=== PATIENT | female | born 1950 | race Caucasian/White ===

== ENCOUNTER 2016-04-13 10:14 | Inpatient (IN) | payer SELFPAY ==
[~2016-04-13] VITALS: Ht 167.6 cm; Wt 58.8 kg
[2016-04-13] MEDS ORDERED: OPTIRAY 350 100 ML VIAL HMH IV ONE (10:15)
[2016-04-13] MEDS ORDERED: SODIUM CHLORIDE 0.9% 0 ML ONE (11:12)
[2016-04-13] MEDS ORDERED: Ibuprofen 600 MG TAB ONE (13:58)
[2016-04-13] MEDS ORDERED: DILAUDID 1 MG/ML AMP ONE (14:56)
[2016-04-13] MEDS ORDERED: ONDANSETRON 4 MG VIAL ONE (14:56)
[2016-04-13] MEDS ORDERED: CEFTRIAXONE 1 GM VIAL ONE (15:32)
[2016-04-13] MEDS ORDERED: SODIUM CHLORIDE 0.9% 100 ML IV ONE (15:32)
[2016-04-13] MEDS ORDERED: SODIUM CHLORIDE 0.9% 250 ML IV ONE (15:57)
[2016-04-13] MEDS ORDERED: AZITHROMYCIN 500 MG VIAL IV ONE (15:57)
[2016-04-13] MEDS ORDERED: SODIUM CHLORIDE 0.9% 1,000 ML ONE ×2 (15:57→16:21)
[2016-04-13] MEDS ORDERED: ALU/MAG/SIM 30 ML UDC PO PRN (16:30)
[2016-04-13] MEDS ORDERED: MORPHINE 4 MG/ML SYR IV PRN (16:30)
[2016-04-13] MEDS ORDERED: ACETAMINOPHEN 325 MG TAB PO PRN (16:30)
[2016-04-13] MEDS ORDERED: MORPHINE 2 MG/ML SYR IV PRN (16:30)
[2016-04-13] MEDS ORDERED: BISACODYL 10 MG SUPP RECTAL PRN (16:30)
[2016-04-13] MEDS ORDERED: GUAIFEN/DM 10 ML UDC PO PRN (16:30)
[2016-04-13] MEDS ORDERED: ONDANSETRON 4 MG VIAL IV PRN (16:30)
[2016-04-13] MEDS ORDERED: SALINE FLUSH 10 ML FLUSH PRN (16:30)
[2016-04-13] MEDS ORDERED: MAG HYDROX 30 ML UDC PO PRN (16:30)
[2016-04-13] MEDS ORDERED: BISACODYL EC 5 MG TAB PO PRN (16:30)
[2016-04-13] MEDS ORDERED: Ibuprofen 600 MG TAB PO PRN (16:40)
[2016-04-13 18:23] VITALS: BP_SYST 124; BP_SYST 125; RESP 16; TEMP 99.2
[2016-04-13 18:24] VITALS: Ht 167.6 cm; Wt 58.8 kg
[2016-04-13] MEDS: NEB-XOPENEX 1.25 MG/3 ML INH SCH ×2 (18:30→23:33)
[2016-04-13] MEDS: SODIUM CHLORIDE 0.9% 1,000 ML IV SCH (18:52)
[2016-04-13] MEDS: ALPRAZOLAM 0.25 MG TAB PO PRN (18:55)
[2016-04-13 19:44] VITALS: BP_SYST 123; RESP 20; TEMP 99.1
[2016-04-13] MEDS: SALINE FLUSH 10 ML FLUSH SCH (19:53)
[2016-04-13] MEDS ORDERED: PROMETHAZINE 25 MG SUPP RECTAL PRN (20:10)
[2016-04-13] MEDS ORDERED: CYCLOBENZAPRINE 5 MG TAB PO PRN (20:10)
[2016-04-13] MEDS: FAMOTIDINE 20 MG TAB PO SCH (20:13)
[2016-04-13] MEDS: Ibuprofen 600 MG TAB PO SCH (20:14)
[2016-04-13] MEDS ORDERED: ZOLPIDEM 5 MG TAB PO ONE (22:30)
[2016-04-13] MEDS ORDERED: ZOLPIDEM 5 MG TAB ONE (22:36)
[2016-04-13 23:11] VITALS: BP_SYST 120; RESP 18; TEMP 98.7
[2016-04-13 23:37] VITALS: RESP 16
[2016-04-14] MEDS: Ibuprofen 600 MG TAB PO SCH ×4 (02:00→20:19)
[2016-04-14] MEDS: SODIUM CHLORIDE 0.9% 1,000 ML IV SCH ×2 (03:49→23:32)
[2016-04-14 03:58] VITALS: BP_SYST 135; RESP 16; TEMP 99.1
[2016-04-14] MEDS: ALPRAZOLAM 0.25 MG TAB PO PRN (04:51)
[2016-04-14] MEDS ORDERED: MISSING DOSE XX ONE (04:55)
[2016-04-14] MEDS: SODIUM CHLORIDE 0.9% FLUSH BAG 500 ML IV SCH ×2 (06:00)
[2016-04-14] MEDS: NEB-XOPENEX 1.25 MG/3 ML INH SCH ×3 (06:23→19:24)
[2016-04-14 07:12] VITALS: BP_SYST 128; RESP 18; TEMP 97.4
[2016-04-14] MEDS: CEFTRIAXONE 1 GM in SODIUM CHLORIDE 0.9% 50 ML IV SCH (08:23)
[2016-04-14] MEDS: AZITHROMYCIN 500 MG in SODIUM CHLORIDE 0.9% 250 ML IV SCH (09:24)
[2016-04-14] MEDS: SALINE FLUSH 10 ML FLUSH SCH ×2 (09:40→20:18)
[2016-04-14] MEDS: KCL CR 20 MEQ TAB PO SCH ×2 (09:44→20:18)
[2016-04-14] MEDS: GUAIFENESIN ER 600 MG TABCR PO SCH ×2 (09:44→20:18)
[2016-04-14] MEDS: MULTIVITS/MINERALS (THERAGRAN M) TAB PO SCH (09:44)
[2016-04-14] MEDS: FAMOTIDINE 20 MG TAB PO SCH ×2 (09:44→20:19)
[2016-04-14] MEDS: ENOXAPARIN 40 MG/0.4 ML SYR SUBQ SCH (09:45)
[2016-04-14 10:51] VITALS: BP_SYST 120; RESP 16; TEMP 97.6
[2016-04-14 14:58] VITALS: BP_SYST 136; RESP 16; TEMP 97.9
[2016-04-14] MEDS: ACETAMINOPHEN 500 MG TAB PO PRN (18:07)
[2016-04-14 20:05] VITALS: BP_SYST 138; RESP 16; TEMP 98.9
[2016-04-14] MEDS ORDERED: ZOLPIDEM 5 MG TAB PO PRN (22:55)
[2016-04-14 23:12] VITALS: BP_SYST 148; RESP 16; TEMP 98
[2016-04-15] MEDS: NEB-XOPENEX 1.25 MG/3 ML INH SCH ×5 (00:15→23:32)
[2016-04-15] MEDS: Ibuprofen 600 MG TAB PO SCH ×4 (02:00→20:40)
[2016-04-15 04:07] VITALS: BP_SYST 149; RESP 18; TEMP 98.4
[2016-04-15] MEDS: SODIUM CHLORIDE 0.9% FLUSH BAG 500 ML IV SCH ×2 (05:09→05:10)
[2016-04-15] MEDS: SODIUM CHLORIDE 0.9% 1,000 ML IV SCH (05:42)
[2016-04-15] MEDS: ACETAMINOPHEN 500 MG TAB PO PRN (07:23)
[2016-04-15 07:49] VITALS: BP_SYST 163; TEMP 97.6
[2016-04-15] MEDS: FAMOTIDINE 20 MG TAB PO SCH ×2 (10:10→20:39)
[2016-04-15] MEDS: SALINE FLUSH 10 ML FLUSH SCH ×2 (10:10→20:39)
[2016-04-15] MEDS: METOPROLOL XL 25 MG TAB PO SCH ×2 (10:10→20:39)
[2016-04-15] MEDS: GUAIFENESIN ER 600 MG TABCR PO SCH ×2 (10:10→20:39)
[2016-04-15] MEDS: KCL CR 20 MEQ TAB PO SCH ×2 (10:10→20:39)
[2016-04-15] MEDS: MULTIVITS/MINERALS (THERAGRAN M) TAB PO SCH (10:11)
[2016-04-15] MEDS: CEFTRIAXONE 1 GM in SODIUM CHLORIDE 0.9% 50 ML IV SCH (10:11)
[2016-04-15] MEDS: ENOXAPARIN 40 MG/0.4 ML SYR SUBQ SCH (10:12)
[2016-04-15] MEDS ORDERED: MISSING DOSE XX ONE (10:40)
[2016-04-15] MEDS: AZITHROMYCIN 500 MG in SODIUM CHLORIDE 0.9% 250 ML IV SCH (11:02)
[2016-04-15 11:51] VITALS: BP_SYST 124; RESP 18; TEMP 98.5
[2016-04-15 15:13] VITALS: BP_SYST 136; RESP 16; TEMP 98.5
[2016-04-15 20:00] VITALS: BP_SYST 147; RESP 16; TEMP 98.4
[2016-04-15] MEDS: SPIRONOLACTONE 25 MG TAB PO SCH (20:39)
[2016-04-15 23:00] VITALS: BP_SYST 151; RESP 18; TEMP 97.7
[2016-04-16] MEDS: ACETAMINOPHEN 500 MG TAB PO PRN (00:36)
[2016-04-16] MEDS: Ibuprofen 600 MG TAB PO SCH ×2 (02:00→08:52)
[2016-04-16 04:00] VITALS: BP_SYST 151; RESP 20; TEMP 98.2
[2016-04-16] MEDS: SODIUM CHLORIDE 0.9% FLUSH BAG 500 ML IV SCH ×2 (06:00→06:40)
[2016-04-16] MEDS: NEB-XOPENEX 1.25 MG/3 ML INH SCH ×2 (07:46→12:04)
[2016-04-16 07:58] VITALS: BP_SYST 157; RESP 18; TEMP 98.6
[2016-04-16] MEDS: SALINE FLUSH 10 ML FLUSH SCH (08:49)
[2016-04-16] MEDS: FAMOTIDINE 20 MG TAB PO SCH (08:50)
[2016-04-16] MEDS: MULTIVITS/MINERALS (THERAGRAN M) TAB PO SCH (08:50)
[2016-04-16] MEDS: KCL CR 20 MEQ TAB PO SCH (08:50)
[2016-04-16] MEDS: GUAIFENESIN ER 600 MG TABCR PO SCH (08:50)
[2016-04-16] MEDS: METOPROLOL XL 25 MG TAB PO SCH (08:50)
[2016-04-16] MEDS: SPIRONOLACTONE 25 MG TAB PO SCH (08:50)
[2016-04-16] MEDS: ENOXAPARIN 40 MG/0.4 ML SYR SUBQ SCH (08:51)
[2016-04-16] MEDS: CEFTRIAXONE 1 GM in SODIUM CHLORIDE 0.9% 50 ML IV SCH (08:52)
[2016-04-16] MEDS ORDERED: MISSING DOSE XX ONE (10:15)
[2016-04-16 11:35] VITALS: BP_SYST 149; RESP 18; TEMP 98
[2016-04-16] MEDS: AZITHROMYCIN 500 MG in SODIUM CHLORIDE 0.9% 250 ML IV SCH (11:36)
[2016-04-16 11:57] VITALS: BP_SYST 149; RESP 18; TEMP 98
== END 2016-04-16 13:43 | disposition home or self-care (01) | DRG 195 ==
LOC: ENRESERVDT → ENRESERVTM → ER 10:14 → EMR 17:01 → ENPENDDIS 17:01 → 4THW 17:35
PROVIDERS: ADMIT Internal Medicine; ATTEND Internal Medicine
CPT/HCPCS: 36415; 71010; 71020; 71260; 80048; 80053; 85007; 85025; 85027; 85610; 85730; 87040; 87278; 87299; 87804; 94640; 94799; 96361; 96365; 96366; 96367; 96375; 99231; 99232; 99233; 99239